=== PATIENT | female | born 1975 | race Caucasian/White ===

== ENCOUNTER 2019-02-24 07:45 | Emergency (ER) | payer MEDICAID ==
[~2019-02-24] VITALS: Ht 170.2 cm; Wt 97.3 kg
[2019-02-24 07:49] VITALS: Ht 170.2 cm; Wt 97.3 kg
[2019-02-24 10:22] VITALS: BP 122/79
== END 2019-02-24 10:22 | disposition home or self-care (01) ==
LOC: ED 07:45
DX: J20.9 Acute bronchitis, unspecified (principal); Z98.890 Other specified postprocedural states